=== PATIENT | female | born 1970 | race Caucasian/White ===

== ENCOUNTER 2019-08-06 07:28 | Day surgery (SDC) | payer OTHER ==
[2019-08-05 15:18] LABS: Absolute Lymphocytes (CBC) 2.4 K/uL (0.7-4.9); Basophils % 0.7 % (0-1.3); Hematocrit 42.3 % (36.0-45.0); Lymphocytes % 31.3 % (15.3-44.8); RBC Red Blood Cell Count 4.44 M/uL (3.86-4.86)
--- NOTE | 2019-08-05 15:29 | RAD REPORT ---
EXAM DESCRIPTION: RAD - Chest Pa And Lat (2 Views) - 08/05/2019 3:02 pm CLINICAL HISTORY: preop, pending cholecystectomy COMPARISON: None. TECHNIQUE: PA and lateral views of the chest were obtained. FINDINGS: The lungs are clear of failure, infiltrate or mass. Patient has a mild chronic interstitia l pattern. Heart size is normal and central vasculature is within normal limits. No pleural effusi on or pneumothorax seen. No acute bony finding noted. No aortic abnormality. IMPRESSION: No acute cardiopulmonary process.
[2019-08-05 15:41] LABS: Blood Morphology Comment NOT SEEN (NOT SEEN); Platelet Estimate ADEQ; Platelets, Giant PRESENT; Urine White Blood Cell Casts OK
[2019-08-05 15:54] LABS: Albumin 3.7 g/dL (3.4-5.0); Bilirubin Direct 0.2 mg/dL (0-0.2); Bilirubin Total 0.6 mg/dL (0.2-1.0); Potassium 3.8 mmol/L (3.5-5.1); Protein, Total 7.2 g/dL (6.4-8.2)
--- NOTE | 2019-08-05 17:10 | EKG ---
Test Date: 2019-08-05 Test Time: 14:49:45 [employer] Inspector: LEIDY MEASUREMENT RESULTS: Intervals: Rate: 64 IN: 152 QRSD: 86 QT: 416 QTc: 429 [place]: P: 53 IN: 152 QRS: 44 T: 51 INTERPRETIVE STATEMENTS: Normal sinus rhythm Normal ECG No previous ECG available for comparison Electronically Signed On 08-05-19 17:09:23 CDT by Carlos Alberto Baker
[~2019-08-06 07:28] MED LIST: FENTANYL CITR 100 MCG/2 ML ONE; GLYCOPYRROLATE 0.2 MG/ML SYR ONE; LIDOCAINE 2% MPF 5 ML VIAL ONE; MIDAZOLAM HCL 2 MG/2 ML INJ ONE; PROPOFOL 200 MG/20 ML VIAL IV ONE; ROCURONIUM 50 MG/5 ML VIAL IV ONE; dexAMETHasone 10 MG/ML VIAL ONE
[2019-08-06] MEDS ORDERED: Ringers Lactate 1,000 ML IV ONE ×2 (07:41→09:45)
[2019-08-06] MEDS ORDERED: BUPIVACAINE 0.5% PF 10 ML VIAL ONE ×2 (07:43→07:44)
[2019-08-06] MEDS ORDERED: CIPROFLOXACIN 400mg IV 400 MG/200 ML BAG IV ONE (08:06)
[2019-08-06] MEDS ORDERED: EPHEDRINE SULF 50 MG/ML VIAL ONE ×2 (08:49)
[2019-08-06] MEDS ORDERED: FENTANYL CITR 100 MCG/2 ML ONE (08:53)
[2019-08-06] MEDS ORDERED: KETOROLAC 30 MG/ML INJ ONE (08:59)
[2019-08-06] MEDS ORDERED: GLYCOPYRROLATE 0.2 MG/ML SYR ONE (09:00)
[2019-08-06] MEDS ORDERED: NEOSTIGMINE 1 MG/ML -10 ML VIAL ONE (09:01)
--- NOTE | 2019-08-06 09:07 | P.BOP ---
Preoperative diagnosis: symptomatic cholelithiasis, RUQ pain Postoperative diagnosis: same, incarcerated umbilical hernia Primary procedure: 1. Laparoscopic cholecystectomy Secondary procedure: 2. Open repair of incarcerated umbilical hernia Instrument Maker Apprentice: COSME CORNELL ([employer]IR[employer]MENT MECHANIC) Estimated blood loss: <10cc Specimen: gb and hernia sac Findings: as above, incarcerated with omentum umbilical hernia Anesthesia: General Complications: None Transferred to: Recovery Room Condition: Good
[2019-08-06] MEDS ORDERED: ONDANSETRON 4 MG/2 ML VIAL ONE (09:25)
[2019-08-06] MEDS ORDERED: MEPERIDINE HCL 25 MG/0.5 ML ONE (09:43)
[2019-08-06] MEDS ORDERED: CODEINE 30MG/APAP 300MG TAB ONE (10:42)
[2019-08-06 11:15] VITALS: TEMP 97.1
[2019-08-06 11:43] VITALS: BP 143/84; O2SAT 100
--- NOTE | 2019-08-06 19:35 | OP ---
Date of Procedure: 08/06/2019 Surgeon: Eyad Ayala MD Galvanizer: MARCOS Hicks. Preoperative Diagnoses: Symptomatic cholelithiasis, right upper quadrant abdominal pain. Postoperative Diagnoses: Symptomatic cholelithiasis, right upper quadrant abdominal pain. Procedures: 1.Laparoscopic cholecystectomy. 2.Open repair of incarcerated umbilical hernia. Estimated Blood Loss: Less than 10 mL. Specimen: Gallbladder and hernia sac. Anesthesia: General plus local. Indications: This is a case of a 48-year-old with above diagnosis. Fully explained the benefits, al ternatives, and risks of laparoscopic, possible open cholecystectomy, which include but are not limit ed to infection, bleeding, damage to adjacent structures, anesthesias complication, choledocholithias is, bile leak, pancreatitis, [place], and even . She also understands this and may not relieve any s ymptoms. She might need more than one surgical intervention. She understood, signed a consent. Description Of Procedure: The patient was brought to the operating room, placed in supine position. Anesthesia was induced without complication. Abdominal area was prepped and draped in a sterile fas hion. Marcaine 0.5% was injected for local anesthetic, followed by sharp incision of the skin in the infraumbilical region. Incision was carried down to fascia, which was opened under direct vision. Peritoneum was encountered, opened under direct vision. Vicryl #1 placed inside of the fascia. Prashanth on trocar was carefully introduced. No bleeding was obtained. I placed 3 more trocars, 5 mm each on e of them, in the right upper quadrant using same technique, which consisted of local anesthetic, sha rp incision of the skin, and introduction of the trocars under direct vision. This allowed me to put a grasper in the fundus of the gallbladder, another grasper in the infundibulum, retracted the gallb ladder in the inferolateral fashion exposing the triangle of Calot, obtaining critical view of safety . Cystic duct and cystic artery were clearly isolated free circumferentially and a connection betwee n those and the gallbladder was clearly identified. I proceeded to ligate those by using at least 2 clips proximal, 1 clip distal, and ligation in middle. Same was done with the cystic artery. No ana e leak. No bleeding. Gallbladder was removed from liver using Bovie cauterizer and removed from the abdominal cavity using EndoCatch through the umbilical incision. It was inspected once again. No b ile leak. No bleeding. At that moment, I proceeded to remove the trocars under direct vision. Defl ated the pneumoperitoneum. We have at the beginning and umbilical hernia with incarcerated omentum o n it. This omentum was carefully released from the umbilical sac. We were fully inspected to make s ure there was no bleeding, removed the hernia sac. Clean the fascia edges and then Endo closure we p roceeded to also close the umbilical hernia with #1 Vicryl in a [id number]-op-[id number] fashion multiple time s. The area was irrigated. Irrigation was done and 3-0 Chromic in the subcutaneous tissue, then 3-0 Chromic and the skin in a subcuticular fashion and Steri-Strips on top. Sponge count and instrument counts were correct. The patient tolerated the procedure well. The patient was sent to recovery in stable condition. SANJUANITA/EPI Voice ID: [id number] Report ID: [id number]
--- NOTE | 2019-08-06 19:35 | DS ---
Date of Discharge: 08/06/2019 Diagnoses: Symptomatic cholelithiasis, right upper quadrant abdominal pain. Postoperative diagnosis also of incarcerated umbilical hernia. Procedures: 1.Laparoscopic cholecystectomy. 2.Open repair of incarcerated umbilical hernia. Disposition: Home. Activity: As tolerated. No heavy lifting. Followup: Follow up in my office in 1 week. Call for appointment [phone]. Discharge Instructions: Keep the area dry for 48 hours, then may shower. Keep Steri-Strips intact. Discharge Medications: For medications, see orders. SANJUANITA/EPI Voice ID: [id number] Report ID: [id number]
== END 2019-08-06 11:38 | disposition home or self-care (01) ==
LOC: OR 07:28
PROVIDERS: ATTEND Surgery
PROC: 0WQF0ZZ Repair Abdominal Wall, Open Approach (ICD-10-PCS; 2019-08-06)
PROC: 0FT44ZZ Resection of Gallbladder, Percutaneous Endoscopic Approach (ICD-10-PCS; principal; 2019-08-06 09:00)
DX: K80.10 Calculus of gallbladder with chronic cholecystitis without obstruction (principal); K42.0 Umbilical hernia with obstruction, without gangrene; Z88.0 Allergy status to penicillin
CPT/HCPCS: 93005; 85025; 80048; 36415; 82150; 80076; 88302; 88304; 83690; 71046; 47562; 49587; J2704; J2710; J2250; J3010 ×2; J1100; J2175; J7120 ×2; J2405; J0744